=== PATIENT | male | born 1955 | race African-American/Black ===

== ENCOUNTER 2021-02-25 09:45 | Inpatient (IN) | payer MEDICARE ==
[~2021-02-25] VITALS: Ht 185.4 cm; Wt 156.5 kg
[~2021-02-25 09:45] MED LIST: ALBU18HF2 IH
[2021-02-25 10:56] LABS: BASOPHILS % 0.6 % (0.0-2.0); EOSINOPHILS % 2.4 % (0.0-5.0); HEMATOCRIT. 38.3 % (42.0-52.0); HEMOGLOBIN. 12.7 g/dL (14.0-18.0); LYMPHOCYTES % 22.7 % (20.0-50.0); MEAN CORPUSCULAR HEMOGLOBIN 29.2 pg (28.0-32.0); MEAN CORPUSCULAR VOLUME 88.1 fL (80.0-94.0); MONOCYTES % 6.7 % (2.0-8.0); NEUTROPHILS % 67.6 % (40.0-76.0); PLATELET 317 x1000/uL (130-400); RED BLOOD CELL COUNT 4.35 mill/uL (4.7-6.1); RED CELL DISTRIBUTION WIDTH 15.3 % (11.6-14.6)
[2021-02-25 11:03] LABS: CHLORIDE 108 mEq/L (98-107)
[2021-02-25] MEDS ORDERED: FUROSEMIDE 40MG/4ML VIAL IVP ONE (11:45)
[2021-02-25 20:00] VITALS: BP 176/70
[2021-02-25 23:00] VITALS: BP 176/70
[2021-02-25] MEDS ORDERED: PNEUMOCOCCAL 23-VAL P-SAC VAC 0.5 ML IM ONE (23:00)
[2021-02-26] VITALS: BP 128/57
[2021-02-26] MEDS ORDERED: CINN500C5 PO (00:48)
[2021-02-26] MEDS ORDERED: FOLI-43 MT (00:48)
[2021-02-26] MEDS ORDERED: CALC650T30 PO (00:48)
[2021-02-26] MEDS ORDERED: FLUT1BLS INH (00:48)
[2021-02-26] MEDS ORDERED: LOSA1TAB37 MT (00:48)
[2021-02-26] MEDS ORDERED: ASCO-339 PO (00:48)
[2021-02-26] MEDS ORDERED: METH2TAB MT (00:48)
[2021-02-26] MEDS ORDERED: ERGO1250 (00:48)
[2021-02-26] MEDS ORDERED: METF-414 PO (00:48)
[2021-02-26] MEDS ORDERED: FURO40TA5 PO (00:48)
[2021-02-26] MEDS ORDERED: IPRATROPIUM/ALBUTEROL 0.5-3(2.5)MG/3ML NEB HHN PRN ×2 (01:15→13:45)
[2021-02-26] MEDS ORDERED: DEXTROSE 50% WATER 50ML SYRINGE IV PRN (01:15)
[2021-02-26 04:00] VITALS: BP 139/68
[2021-02-26] MEDS ORDERED: *PATIENT'S OWN MEDICATION STORAGE XX SCH (06:00)
[2021-02-26 06:25] LABS: BASOPHILS % 0.5 % (0.0-2.0); EOSINOPHILS % 2.4 % (0.0-5.0); HEMATOCRIT. 38.1 % (42.0-52.0); HEMOGLOBIN. 12.4 g/dL (14.0-18.0); LYMPHOCYTES % 20.7 % (20.0-50.0); MEAN CORPUSCULAR HEMOGLOBIN 29.1 pg (28.0-32.0); MEAN CORPUSCULAR VOLUME 89.2 fL (80.0-94.0); MEAN PLATELET VOLUME 8.5 fl (7.4-10.4); NEUTROPHILS % 67.4 % (40.0-76.0); PLATELET 267 x1000/uL (130-400); RED BLOOD CELL COUNT 4.27 mill/uL (4.7-6.1); RED CELL DISTRIBUTION WIDTH 14.7 % (11.6-14.6)
[2021-02-26 07:15] LABS: CHLORIDE 106 mEq/L (98-107)
[2021-02-26] MEDS: INSULIN LISPRO 100 UNITS/ML SUBCUT SCH ×4 (07:40→21:00)
[2021-02-26 08:00] VITALS: BP 133/71
[2021-02-26] MEDS ORDERED: ENOXAPARIN 40MG/0.4ML SYR SUBCUT SCH (09:00)
[2021-02-26 09:27] LABS: BG BASE EXCESS 2.1 mmol/L (-2.0-2.0); BG CARBOXYHEMOGLOBIN 0.9 % (0.5-1.5); BG DEOXYHEMOGLOBIN 3.8 % (0.0-5.0); BG FRACTION INSPIRED OXYGEN 21; BG HCO3 ACT 26.4 mmol/L (22.0-26.0); BG METHEMOGLOBIN 0.3 % (0.0-1.5); BG OXYGEN SATURATION 96.2 % (92.0-98.5); BG PCO2 40.2 mmHg (35.0-45.0); BG PH 7.436 (7.350-7.450); BG PO2 79.5 mmHg (75.0-100.0); BG SAMPLE SITE RIGHT RADIAL; BG TOTAL HEMOGLOBIN 13.8 g/dL (12.0-18.0); BG VENT MODE ROOM AIR
[2021-02-26] MEDS: ENOXAPARIN 40MG/0.4ML SYR SUBCUT SCH ×2 (09:43→22:09)
[2021-02-26] MEDS: FUROSEMIDE 40MG/4ML VIAL IVP SCH ×3 (09:43→22:09)
[2021-02-26] MEDS: POTASSIUM CHLORIDE 20MEQ TABLET SR PO SCH ×2 (09:44→09:46)
[2021-02-26] MEDS: LOSARTAN POTASSIUM 50 MG TABLET PO SCH (09:44)
[2021-02-26 12:00] VITALS: BP 125/67
[2021-02-26] MEDS ORDERED: LORAZEPAM 2MG/ML CPJ IV SCH (13:45)
[2021-02-26 15:55] LABS: *AMPHETAMINES SCREEN URINE NEGATIVE (NEGATIVE); *BARBITURATES SCREEN URINE NEGATIVE (NEGATIVE); *BENZODIAZEPINES SCREEN URINE NEGATIVE (NEGATIVE); *COCAINE SCREEN URINE NEGATIVE (NEGATIVE); CANNABINOID URINE SCREEN NEGATIVE (NEGATIVE); METHADONE URINE SCREEN NEGATIVE (NEGATIVE); OPIATES URINE SCREEN NEGATIVE (NEGATIVE); PHENCYCLIDINE URINE SCREEN NEGATIVE (NEGATIVE)
[2021-02-26 16:00] VITALS: BP 114/65
[2021-02-26] MEDS ORDERED: INFLUENZA VACCINE 05/PF 0.5 ML SYRINGE IM ONE (18:00)
[2021-02-26 20:00] VITALS: BP 115/63
[2021-02-27] VITALS: BP 127/76
[2021-02-27 04:00] VITALS: BP 131/70
[2021-02-27] MEDS: INSULIN LISPRO 100 UNITS/ML SUBCUT SCH ×4 (06:05→20:12)
[2021-02-27 07:04] LABS: BASOPHILS % 0.5 % (0.0-2.0); EOSINOPHILS % 2.4 % (0.0-5.0); HEMATOCRIT. 39.4 % (42.0-52.0); HEMOGLOBIN. 13.2 g/dL (14.0-18.0); MEAN CORPUSCULAR HEMOGLOBIN 29.7 pg (28.0-32.0); MEAN CORPUSCULAR VOLUME 88.9 fL (80.0-94.0); MEAN PLATELET VOLUME 8.4 fl (7.4-10.4); MONOCYTES % 10.4 % (2.0-8.0); NEUTROPHILS % 61.7 % (40.0-76.0); PLATELET 299 x1000/uL (130-400); RED BLOOD CELL COUNT 4.44 mill/uL (4.7-6.1); RED CELL DISTRIBUTION WIDTH 15.2 % (11.6-14.6)
[2021-02-27 07:20] LABS: CHLORIDE 103 mEq/L (98-107)
[2021-02-27] MEDS: FUROSEMIDE 40MG/4ML VIAL IVP SCH ×2 (09:52→20:50)
[2021-02-27] MEDS: ENOXAPARIN 40MG/0.4ML SYR SUBCUT SCH ×2 (09:52→20:50)
[2021-02-27] MEDS: LOSARTAN POTASSIUM 50 MG TABLET PO SCH (09:52)
[2021-02-27] MEDS: POTASSIUM CHLORIDE 20MEQ TABLET SR PO SCH (09:52)
[2021-02-27] MEDS ORDERED: ACETAMINOPHEN 325MG TABLET PO PRN (11:00)
[2021-02-27] MEDS ORDERED: ACETAMINOPHEN 650MG SUPP PR PRN (11:00)
[2021-02-27] MEDS ORDERED: HYDROCODONE/ACETAMINOPHEN 5/325MG TABLET PO PRN (11:00)
[2021-02-27] MEDS ORDERED: HYDRALAZINE 20MG/ML VIAL IV PRN (11:00)
[2021-02-27] MEDS ORDERED: ONDANSETRON HCL 4MG/2ML INJ IV PRN (11:00)
[2021-02-27] MEDS ORDERED: NALOXONE HCL 0.4MG/ML VIAL IV PRN (11:00)
[2021-02-27 14:24] LABS: TOTAL IRON BINDING CAPACITY 248 ug/dL (250-450)
[2021-02-27 14:44] LABS: FERRITIN 109 ng/mL (22-322)
[2021-02-27 14:56] LABS: VITAMIN B12 SERUM 864 pg/mL (211-911)
[2021-02-27 16:00] VITALS: BP 137/72
[2021-02-27 16:18] LABS: D-DIMER 0.9 mg/L FEU (<0.50); INR 1.1; PROTHROMBIN TIME 11.6 sec (9.6-11.0)
[2021-02-27] MEDS ORDERED: P20 PO (16:29)
[2021-02-27] MEDS ORDERED: FLUT1BLS INH (16:29)
[2021-02-27] MEDS ORDERED: ALBU18HF2 IH (16:29)
[2021-02-27] MEDS ORDERED: FURO40TA5 PO (16:29)
[2021-02-27] MEDS: PREDNISONE 20MG TABLET PO SCH (18:10)
[2021-02-27 20:00] VITALS: BP 134/82
[2021-02-27] MEDS: IPRATROPIUM/ALBUTEROL 0.5-3(2.5)MG/3ML NEB HHN SCH (20:00)
[2021-02-27] MEDS ORDERED: IOHEXOL-350 100 ML BOTTLE ONE (20:18)
[2021-02-28] VITALS: BP 154/73
[2021-02-28] MEDS: IPRATROPIUM/ALBUTEROL 0.5-3(2.5)MG/3ML NEB HHN SCH (00:19)
[2021-02-28 04:00] VITALS: BP 107/59
[2021-02-28] MEDS: INSULIN LISPRO 100 UNITS/ML SUBCUT SCH ×2 (05:19→12:40)
[2021-02-28 05:36] LABS: BASOPHILS % 0.2 % (0.0-2.0); CHLORIDE 102 mEq/L (98-107); HEMATOCRIT. 39.5 % (42.0-52.0); LYMPHOCYTES % 9.7 % (20.0-50.0); MEAN CORPUSCULAR HEMOGLOBIN 29.2 pg (28.0-32.0); MEAN CORPUSCULAR VOLUME 88.3 fL (80.0-94.0); MEAN PLATELET VOLUME 8.1 fl (7.4-10.4); MONOCYTES % 2.5 % (2.0-8.0); NEUTROPHILS % 87.6 % (40.0-76.0); PLATELET 331 x1000/uL (130-400); RED BLOOD CELL COUNT 4.47 mill/uL (4.7-6.1); RED CELL DISTRIBUTION WIDTH 14.7 % (11.6-14.6)
[2021-02-28 08:00] VITALS: BP 120/65
[2021-02-28] MEDS: FUROSEMIDE 40MG/4ML VIAL IVP SCH (09:00)
[2021-02-28] MEDS: ENOXAPARIN 40MG/0.4ML SYR SUBCUT SCH (09:00)
[2021-02-28] MEDS: PREDNISONE 20MG TABLET PO SCH (09:20)
[2021-02-28] MEDS: LOSARTAN POTASSIUM 50 MG TABLET PO SCH (09:20)
[2021-02-28] MEDS: POTASSIUM CHLORIDE 20MEQ TABLET SR PO SCH (09:20)
[2021-02-28 10:58] VITALS: BP 120/65
== END 2021-02-28 12:25 | disposition home or self-care (01) | DRG 202 ==
LOC: ER 09:45 → ENRESERV 17:10 → 8WST 20:19
PROVIDERS: ADMIT Internal Medicine; ATTEND Internal Medicine
DX: J45.901 Unspecified asthma with (acute) exacerbation (principal); I50.43 Acute on chronic combined systolic (congestive) and diastolic (congestive) heart failure; J98.11 Atelectasis; Z68.42 Body mass index [BMI] 45.0-49.9, adult; I11.0 Hypertensive heart disease with heart failure; E87.8 Other disorders of electrolyte and fluid balance, not elsewhere classified; R06.03 Acute respiratory distress; E66.01 Morbid (severe) obesity due to excess calories; D64.9 Anemia, unspecified; E87.5 Hyperkalemia; F17.200 Nicotine dependence, unspecified, uncomplicated; M48.02 Spinal stenosis, cervical region; Z20.822 Contact with and (suspected) exposure to COVID-19; Z88.0 Allergy status to penicillin; Z79.899 Other long term (current) drug therapy; Z79.84 Long term (current) use of oral hypoglycemic drugs; Z79.51 Long term (current) use of inhaled steroids; Z72.89 Other problems related to lifestyle
CPT/HCPCS: 36415; 36600; 71045; 71275; 80048; 80053; 80305; 82375; 82607; 82728; 82805; 82962; 83036; 83540; 83550; 83880; 84443; 84484; 85025; 85379; 87426; 90686; 90732; 93005; 93306; 93970; 94640; 97162; 99285; J1650; J1940; J7512; Q9967

== ENCOUNTER 2023-08-18 09:19 | Emergency (ER) | payer MEDICARE, OTHER ==
[~2023-08-18] VITALS: Ht 185.4 cm; Wt 158.0 kg
[~2023-08-18 09:19] MED LIST changes: +ASCO-339 PO; +CALC650T30 PO; +CINN500C5 PO; +ERGO1250; +FLUT1BLS INH; +FOLI-43 MT; +FURO40TA5 PO; +LOSA1TAB37 MT; +METF-414 PO; +P20 PO
[2023-08-18 09:27] VITALS: O2SAT 94
[2023-08-18 10:40] LABS: BASOPHILS % 0.6 % (0.0-2.0); HEMATOCRIT. 39.2 % (42.0-52.0); HEMOGLOBIN. 12.8 g/dL (14.0-18.0); LYMPHOCYTES % 20.4 % (20.0-50.0); MEAN CORPUSCULAR HEMOGLOBIN 28.9 pg (28.0-32.0); MEAN CORPUSCULAR HGB CONC 32.8 g/dL (31.0-37.0); MEAN CORPUSCULAR VOLUME 88.4 fL (80.0-94.0); MEAN PLATELET VOLUME 7.9 fl (7.4-10.4); MONOCYTES % 7.1 % (2.0-8.0); NEUTROPHILS % 70.9 % (40.0-76.0); PLATELET 272 x1000/uL (130-400); RED BLOOD CELL COUNT 4.44 mill/uL (4.7-6.1); RED CELL DISTRIBUTION WIDTH 15.6 % (11.6-14.6); WHITE BLOOD COUNT 11.3 x1000/uL (4.5-11.0)
[2023-08-18 10:44] LABS: PROTHROMBIN TIME 11.4 sec (9.6-11.0)
[2023-08-18 11:00] LABS: ALANINE AMINOTRANSFERASE 13 IU/L (10-49); ALBUMIN 4.9 g/dL (3.2-4.8); ASPARTATE AMINOTRANSFERASE 18 IU/L (<34); BILIRUBIN TOTAL 0.8 mg/dL (0.1-1.0); CALCIUM 9.4 mg/dL (8.7-10.4); CARBON DIOXIDE 25 mEq/L (21-32); CHLORIDE 104 mEq/L (98-107); CREATININE 1.1 mg/dL (0.6-1.3); GLUCOSE 99 mg/dL (70-105); POTASSIUM 3.9 mEq/L (3.5-5.1); SODIUM 137 mEq/L (136-145); TROPONIN I HIGH SENSITIVITY 6 ng/L (3.0-53); UREA NITROGEN BLOOD 18 mg/dL (9-23)
[2023-08-18] MEDS: PREDNISONE 20MG TABLET PO STA (11:24)
[2023-08-18] MEDS: FUROSEMIDE 40MG/4ML VIAL IV ONE (11:30)
[2023-08-18 12:00] VITALS: PULSE 101; RESP 24
[2023-08-18] MEDS: IPRATROPIUM BROMIDE (0.02%) 0.5MG/2.5ML NEB HHN STA (12:00)
[2023-08-18] MEDS: ALBUTEROL (0.083%) 2.5MG/3ML NEB HHN SCH (12:01)
[2023-08-18 12:28] VITALS: PULSE 96; RESP 22
[2023-08-18 12:56] VITALS: PULSE 88; RESP 20
[2023-08-18] MEDS: FUROSEMIDE 40MG/4ML VIAL IV NR (17:18)
[2023-08-18] MEDS: PREDNISONE 20MG TABLET PO NR (17:27)
[2023-08-18] MEDS ORDERED: ZOLPIDEM TARTRATE 5MG TABLET PO PRN (18:15)
[2023-08-18] MEDS ORDERED: IPRATROPIUM/ALBUTEROL 0.5-3(2.5)MG/3ML NEB HHN PRN (18:15)
[2023-08-18] MEDS ORDERED: ACETAMINOPHEN 325MG TABLET PO PRN (18:15)
[2023-08-18] MEDS ORDERED: ONDANSETRON HCL 4MG/2ML INJ IV PRN (18:15)
[2023-08-18 18:33] LABS: *AMPHETAMINES SCREEN URINE NEGATIVE (NEGATIVE); *BARBITURATES SCREEN URINE NEGATIVE (NEGATIVE); *BENZODIAZEPINES SCREEN URINE NEGATIVE (NEGATIVE); *COCAINE SCREEN URINE NEGATIVE (NEGATIVE); CANNABINOID URINE SCREEN NEGATIVE (NEGATIVE); ECSTASY MDMA SCREEN URINE NEGATIVE (NEGATIVE); METHADONE URINE SCREEN Neg (NEGATIVE); OPIATES URINE SCREEN NEGATIVE (NEGATIVE); PHENCYCLIDINE URINE SCREEN NEGATIVE (NEGATIVE)
[2023-08-18 19:11] VITALS: BP 138/76; PULSE 98; RESP 18; TEMP 98.5
[2023-08-18] MEDS ORDERED: ENOXAPARIN 40MG/0.4ML SYR SUBCUT SCH (21:00)
== END 2023-08-18 19:39 | disposition short-term general hospital (02) ==
LOC: ER 09:19 → EDBEDREQTM 15:35 → EDBEDREQ 15:35 → ER 19:39
DX: I11.0 Hypertensive heart disease with heart failure (principal); I50.9 Heart failure, unspecified; J44.1 Chronic obstructive pulmonary disease with (acute) exacerbation; J45.909 Unspecified asthma, uncomplicated; Z98.890 Other specified postprocedural states; Z79.899 Other long term (current) drug therapy
CPT/HCPCS: 99291; 96374; 80053; 80305; 83880; 85025; 85610; 84484; 36415; 71045; 94640; 93005; J7512; J1940